=== PATIENT | female | born 1970 | race Caucasian/White ===

== ENCOUNTER 2018-06-27 21:18 | Emergency (ER) | payer BC ==
[~2018-06-27] VITALS: Ht 154.9 cm; Wt 72.6 kg
[2018-06-27 21:26] VITALS: BP_SYST 158
--- NOTE | 2018-06-27 22:04 | NUR ---
PT LEFT WITHOUT BEING SEEN. I ADVISED PT TO STAY AND AT LEAST HAVE A MEDICAL SCREENING DONE BY MD, BUT PT REFUSED AND STATED WILL RETURN IF CONDITION WORSENS.
== END 2018-06-27 22:04 | disposition left against medical advice (07) ==
LOC: SED 21:18
DX: S61.012A Laceration without foreign body of left thumb without damage to nail, initial encounter (principal); Z53.21 Procedure and treatment not carried out due to patient leaving prior to being seen by health care provider; W26.0XXA Contact with knife, initial encounter; Y93.G3 Activity, cooking and baking; Y92.89 Other specified places as the place of occurrence of the external cause; Y99.8 Other external cause status